=== PATIENT | male | born 1970 | race Caucasian/White ===

== ENCOUNTER 2019-10-14 11:42 | Outpatient (CLI) | payer OTHER, SELFPAY ==
--- NOTE | ~2019-10-14 | XR_ITS ---
XR lumbar spine 2-3V 10/14/2019 12:04 Indication: Low back pain. Radiculopathy. Procedure: 3 views lumbar spine Comparison: No prior studies for comparison. Findings: There is disc narrowing at all lumbar levels. There is moderate facet hypertrophy at L3-4, L4-5 and L5-S1. No acute fracture, subluxation or dislocation. No evidence for spondylolisthesis. Nor mal lumbar lordosis. Sacral foramen are symmetric. Impression: 1: Moderate lumbar spondylosis. Reviewed, dictated and finalized at location B. [employer] Impression: 1: Moderate lumbar spondylosis.
== END 2019-10-14 11:43 | disposition home or self-care (01) ==
PROVIDERS: PCP Internal Medicine; Visit Provider Internal Medicine
DX: M47.26 Other spondylosis with radiculopathy, lumbar region (principal)
CPT/HCPCS: 72100

== ENCOUNTER 2019-10-21 15:42 | Outpatient (CLI) | payer OTHER, SELFPAY ==
--- NOTE | ~2019-10-21 | MR_ITS ---
EXAMINATION: MR lumbar spine wo con DATE: 10/21/2019 17:01 INDICATION: Lumbar radiculopathy. TECHNIQUE: Magnetic resonance imaging (MRI) of the lumbar spine was performed without intravenous con trast. Sequences included sagittal T2-weighted FSE, sagittal T2-weighted FS FSE, sagittal T1-weighted FSE, and axial T2-weighted FSE. COMPARISON: Lumbar spine radiographs 10/14/2019 FINDINGS: There is 4 degrees levocurvature of lumbar spine. There is 3 mm retrolisthesis of L2 on L3. Vertebral body heights are normal. There is moderately decreased disc height at L2-L3, severely decr eased disc height at L3-L4 and L4-L5, and moderately decreased disc height at L5-S1. The distal spina l cord signal intensity is normal. The conus medullaris is at L1-L2. The following disc levels are sp ecifically discussed: L1-L2: The disc is mildly bulging. There is mild bilateral facet joint osteoarthritis. There is no ne ural foraminal stenosis. There is mild central canal stenosis. L2-L3: The disc is bulging and has an annular fissure. There is mild bilateral facet joint osteoarthr itis. There is mild bilateral neural foraminal stenosis. There is mild central canal stenosis. L3-L4: The disc is bulging. There is mild bilateral facet joint osteoarthritis. There is mild bilater al neural foraminal stenosis. There is mild central canal stenosis. L4-L5: The disc is bulging. There is mild bilateral facet joint osteoarthritis. There is mild bilater al neural foraminal stenosis. There is mild central canal stenosis. L5-S1: The disc is bulging and has an annular fissure. There is severe bilateral facet joint osteoart hritis. There is mild right and moderate left neural foraminal stenosis. There is mild central canal stenosis. IMPRESSION: 1. Severe lumbar spondylosis. Reviewed, dictated and finalized at location A.
== END 2019-10-21 15:43 | disposition home or self-care (01) ==
PROVIDERS: PCP Internal Medicine; Visit Provider Internal Medicine
DX: M47.22 Other spondylosis with radiculopathy, cervical region (principal)
CPT/HCPCS: 72148